=== PATIENT | female | born 1980 | race Caucasian/White ===

== ENCOUNTER 2021-12-21 13:08 | Emergency (ER) | payer OTHER ==
[~2021-12-21] VITALS: Ht 162.6 cm; Wt 52.2 kg
[2021-12-21] MEDS ORDERED: FOLIC ACID20 MG (13:28)
[2021-12-21] MEDS ORDERED: SYNTHROID75 MCG (13:28)
[2021-12-21] MEDS ORDERED: SYNTHROID100 MCG (13:28)
== END 2021-12-21 16:09 | disposition home or self-care (01) ==
LOC: ER 13:08
DX: O26.891 Other specified pregnancy related conditions, first trimester (principal); Z3A.01 Less than 8 weeks gestation of pregnancy; R10.2 Pelvic and perineal pain